=== PATIENT | male | born 1960 | race Caucasian/White ===

== ENCOUNTER 2019-10-12 23:46 | Emergency (ER) | payer OTHER ==
[~2019-10-12] VITALS: Ht 185.4 cm; Wt 127.0 kg
[2019-10-12 23:49] VITALS: BP 121/72
--- NOTE | 2019-10-12 23:49 | NUR ---
PT SARIAH BLS. TAKEN TO BED 8
--- NOTE | 2019-10-13 00:06 | NUR ---
59 Y/O MALE SARIAH BLS FROM HOME C/O ALTERED MENTAL STATUS. PT THREATENING DAUGHTER PER EMS. PT AWAKE AND ALERT. ALERT TO NAME, DATE, TIME, PRESIDENT. PT DENIES PAIN. RR EVEN AND UNLABORED. PT POSITIONED IN BED FOR COMFORT. PRESENTS WITH LT LAC TO ANKLE, PT STATES HE RAN IT OVER WITH SHOPPING CART THIS EVENING. VSS.
--- NOTE | 2019-10-13 00:53 | NUR ---
Dr. Sexton examining patient.
--- NOTE | 2019-10-13 01:13 | NUR ---
PT RESTING IN BED ON CELLPHONE, POSITIONED FOR COMFORT. NO COMPLAINTS OF PAIN AT THIS TIME. RR EVEN AND UNLABORED. VSS. WILL CONTINUE TO MONITOR.
[2019-10-13] MEDS ORDERED: NACL 0.9% 500 ML IV SCH (01:17)
[2019-10-13 02:06] LABS: BASOPHILS % (AUTO) 0.3 % (0.0-2.0); EOSINOPHILS # (AUTO) 0.1 K/uL (0-0.4); EOSINOPHILS % (AUTO) 1.4 % (0.0-4.0); LYMPHOCYTES # (AUTO) 1.3 K/uL (2.0-11.5); LYMPHOCYTES % (AUTO) 12.4 % (20.5-51.1); MEAN CORPUSCULAR HEMOGLOBIN 29 pg (27-31); MEAN CORPUSCULAR HGB CONC 32 g/dL (33-37); MEAN CORPUSCULAR VOLUME 90.2 fL (80-94); MONOCYTES # (AUTO) 1.2 K/uL (0.8-1.0); MONOCYTES % (AUTO) 11.8 % (1.7-9.3); NEUTROPHILS # (AUTO) 7.5 K/uL (1.8-7.7); NEUTROPHILS % (AUTO) 74.1 % (42.2-75.2); PLATELET COUNT (AUTO) 223 K/uL (140-450); WHITE BLOOD COUNT (AUTO) 10.2 K/uL (4.8-10.8)
--- NOTE | 2019-10-13 02:10 | NUR ---
URINE RECEIVED FROM PT VIA BEDSIDE URINAL. PT COOPERATIVE AND PLEASANT. VSS. WILL CONTINUE TO MONITOR
[2019-10-13 02:17] LABS: ANION GAP 8.5 (8-16); CARBON DIOXIDE 34.4 mmol/L (21-32); POTASSIUM 3.9 mmol/L (3.5-5.1)
[2019-10-13 02:23] LABS: PROTHROMBIN TIME 10.4 secs (10.8-13.4)
[2019-10-13 02:34] LABS: ALBUMIN 3.1 g/dL (3.4-5.0); TOTAL BILIRUBIN 0.8 mg/dL (0.0-1.0)
[2019-10-13 02:53] VITALS: BP 121/72
--- NOTE | 2019-10-13 03:08 | NUR ---
PT LAYING IN BED WITH EYES CLOSED. VISIBLE RISE AND FALL OF CHEST. RR EVEN AND UNLABORED. NO COMPLAINT OF PAIN. PT AROUSABLE TO NAME. VSS. WILL CONTINUE TO MONITOR.
[2019-10-13 03:32] LABS: BILIRUBIN,URINE NEGATIVE (NEGATIVE); BLOOD, URINE NEGATIVE (NEGATIVE); COLOR,URINE YELLOW (YELLOW); LEUKOCYTE ESTERASE ,URINE NEGATIVE (NEGATIVE); NITRITE, URINE NEGATIVE (NEGATIVE); UGLUCOSE NEGATIVE (NEGATIVE)
[2019-10-13 03:34] LABS: APPEARANCE,URINE SLIGHTLY HAZY (CLEAR)
[2019-10-13 03:42] LABS: RBC,URINE 0-5 /HPF (0-5); WBC,URINE 0-5 /HPF (0-5)
[2019-10-13] MEDS ORDERED: VANCOMYCIN 1,000 MG in DEXTROSE 5% 250 ML IV ONE (04:15)
[2019-10-13] MEDS ORDERED: PIPERACILLIN/TAZOBACTAM 3.375 GM in DEXTROSE 5% 50 ML IV ONE (04:15)
[2019-10-13] MEDS ORDERED: PIPERACILLIN/TAZOBACTAM 3.375 GM VIAL IV ONE (04:18)
[2019-10-13] MEDS ORDERED: VANCOMYCIN 1,000 MG VIAL ONE (04:18)
--- NOTE | 2019-10-13 05:07 | NUR ---
PT REFUSED TO SIGN CONSENT FOR TRANSPORT TO [place]. DR RAMIREZ MADE AWARE.
--- NOTE | 2019-10-13 05:36 | NUR ---
Note anish in EDM - 10/13/19 at 0541 by [email or web address] Patient does not wish to proceed with medical care recommended by DR RAMIREZ. Patient given information related to possible complications, up to and including , which could occur as a result of leaving hospital at this time. Patient verbalizes understanding of risks involved leaving against medical advice. Patient has signed AMA form.
--- NOTE | 2019-10-13 05:40 | NUR ---
PT AGREED TO LET MEDICATION FINISH INFUSING PER DR RAMIREZ RECOMMENDATION.
--- NOTE | 2019-10-13 06:31 | NUR ---
Patient does not wish to proceed with medical care recommended by DR RAMIREZ. Patient given information related to possible complications, up to and including , which could occur as a result of leaving hospital at this time. Patient verbalizes understanding of risks involved leaving against medical advice. Patient has signed AMA form.
== END 2019-10-13 05:36 | disposition left against medical advice (07) ==
LOC: MED 23:46
DX: L03.115 Cellulitis of right lower limb (principal); L03.116 Cellulitis of left lower limb; R41.82 Altered mental status, unspecified; I50.9 Heart failure, unspecified; J18.9 Pneumonia, unspecified organism; Z95.0 Presence of cardiac pacemaker; Z88.8 Allergy status to other drugs, medicaments and biological substances
CPT/HCPCS: 36415; 71045; 80053; 81001; 83605; 83880; 84484; 85025; 85610; 85730; 87040; 93005; 96365; 96367; 99284; J2543; J3370; Q0092; J7030